=== PATIENT | female | born 1985 | race Caucasian/White ===

== ENCOUNTER 2025-05-26 20:38 | Inpatient (IN) | payer OTHER, SELFPAY ==
--- OUTSIDE RECORDS SUMMARY | 2025-05-23 11:39 | XMS_ITS | Encounter Summary ---
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 mmol/L 05/26/2025 2:47 PM [facility] BUN 11 7 - 24 mg/dL 05/26/2025 2:47 PM [facility] Creatinine, Blood 0.60 0.50 - 1.30 mg/dL 05/26/2025 2:47 PM [facility] Glucose, Blood 91 50 - 100 mg/dL 05/26/2025 2:47 PM [facility] Calcium 9.0 8.5 - 10.5 mg/dL 05/26/2025 2:47 PM [facility] Total Protein 7.4 6.2 - 8.2 g/dL 05/26/2025 2:47 PM [facility] Albumin, Blood 4.1 3.4 - 5.2 g/dL 05/26/2025 2:47 PM [facility] Globulin Result 3.3 2.0 - 4.0 g/dL 05/26/2025 2:47 PM [facility] AST (SGOT) 25 11 - 40 U/L 05/26/2025 2:47 PM [facility] ALT (SGPT) 28 5 - 40 U/L 05/26/2025 2:47 PM [facility] Alkaline Phosphatase 101 30 - 115 U/L 05/26/2025 2:47 PM [facility] Total Bilirubin 0.4 0.2 - 1.2 mg/dL 05/26/2025 2:47 PM EST [facility] Estimated GFR(CKD-EPI) 116 >=60 mL/min/BSA 05/26/2025 2:47 PM EST [facility] Blood PERIPHERAL BLOOD SPECIMEN / Unknown Venipuncture / Unknown 05/26/2025 1:07 PM EST 05/26/2025 1:14 PM EST Kami Soto NP LAB BLOOD ORDERABLES Final Res ult Performing Organization Address [facility] Co de Phone Number [facility] [address] [place] [address] * ECG 12 lead, to be obtained, other indication (05/26/2025 12:50 PM EST) Pathologist [facility] Ventricular Heart Rate 87 BPM EKG [facility] Atrial Heart Rate 87 BPM EKG [facility] WI Interval 138 ms EKG [facility] QRSD Interval 84 ms EKG [facility] QT Interval 354 ms EKG [facility] QTC Interval 425 ms EKG [facility] P [place] 61 degrees EKG [facility] R [place] 32 degrees EKG [facility] T Wave [place] 43 degrees EKG [facility] 05/26/2025 12:4 8 PM EST 05/26/2025 4:12 PM EST Narrative EKG [facility] - 05/26/2025 4:12 PM EST Normal sinus rhythm Late R wave progression in precordial leads Early repolarization Confirmed by Manny Sterling ([id number]) on 05/26/2025 4:12:38 PM Procedure Note Manny Sterling MD - 05/26/2025 Normal sinus rhythm Late R wave progression in precordial leads Early repolarization Confirmed by Manny Sterling ([id number]) on 05/26/2025 4:12:38 PM Kami Soto NP ECG ORDERABLES Final Result Performing Organization Address [facility] Co de Phone Number EKG [facility] [address] [place] [address] * (HCG), Urine (05/23/2025 1:59 PM EDT) Pathologist [facility] HCG, Urine Random Negative Negative 05/23/2025 2:25 PM EDT [facility] Comment:False positives and false negatives results may occur with qualitative tests for HCG due to unexpected antibodies. Clinical correlation is necessary. Urine URINE SPECIMEN / Unknown Collection / Unknown 05/23/2025 1:59 PM EDT 05/23/2025 2:11 PM EDT Della Flowers MD URINE ORDERABLES Final Result [facility] [address] [place] [address] * (ABNORMAL) Drug Screen, Urine (05/23/2025 1:59 PM EDT) 6-Aceytlmorphine Screen, Urine Negative Negative 05/23/2025 2:49 PM EDT [facility] Comment:Add on order [id number] Opiates and Oxycodone, Urine, Confirmation, if confirmation desired. Amphetamines Screen, Urine Negative Negative 05/23/2025 2:49 PM EDT [facility] Comment: Screen for Amphetamine, Metamphetamine or other Amphetamine-like compounds. Add-on order [id number] Amphetamine, Urine, Confirmation if confirmation desired. Barbiturates Screen, Urine Negative Negative 05/23/2025 2:49 PM EDT [facility] Comment:Add-on order [id number] Barbiturate, Urine, Confirmation if confirmation desired. Benzodiazepine Screen, Urine Negative Negative 05/23/2025 2:49 PM EDT [facility] Comment: Add-on order [id number] Benzodiazepine, Urine, Confirmation if confirmation desired. Buprenorphine Screen, Urine Negative Negative 05/23/2025 2:49 PM EDT [facility] Comment:Add-on order [id number] Buprenorphine, Urine, Confirmation if confirmation desired. Cannabinoids Screen, Urine Positive(A) Negative 05/23/2025 2:49 PM EDT [facility] Comment:Add-on order [id number] Cannabinoids, Urine, if confirmation desired. Cocaine Metabolite Screen, Urine Negative Negative 05/23/2025 2:49 PM EDT [facility] Comment:Add-on order [id number] Cocaine, Urine, Confirmation if confirmation desired. Ethanol Screen, Urine Negative Negative 05/23/2025 2:49 PM EDT [facility] Fentanyl Screen, Urine Negative Negative 05/23/2025 2:49 PM EDT [facility] Comment:Add-on order [id number] Fentanyl Confirmation, Urine, if confirmation desired. Methadone Screen, Urine Negative Negative 05/23/2025 2:49 PM EDT [facility] Comment:Add order [id number] Me thadone, Urine, Confirmation if confirmation desired. Opiates Screen, Urine Negative Negative 05/23/2025 2:49 PM EDT [facility] Comment: Screen for Morphine, Codeine, Hyrdocodone, Hydromorphone, or other Morphine- related opiates. Add on order [id number] Opiates and Oxycodone, Urine, Confirmation if confirmation desired. Oxycodone Screen, Urine Negative Negative 05/23/2025 2:49 PM EDT [facility] Comment:Add-on order [id number] Opiates and Oxycodone, Urine, Confirmation if confirmation desired. Tramadol Screen, Urine Negative Negative 05/23/2025 2:49 PM EDT [facility] Comment:Add-on order [id number] Tramadol Confirmation, Urine, if confirmation desired. Creatinine, [facility] Urine 78.0 >=15.0 mg/dL 05/23/2025 2:49 PM EDT [facility] Urine URINE SPECIMEN / Unknown Collection / Unknown 05/23/2025 1:59 PM EDT 05/23/2025 2:11 PM EDT [facility] - 05/23/2025 2:49 PM EDT These tests are for screening purposes only and should only be used for medical purposes. The cutoff concentrations for determining a positive result are as follows: 6-Acetylmorphine 10 ng/mL 6-acetylmorphine Amphetamines 1000 ng/mL d-methamphetamine Barbiturates 200 ng/mL secobarbital Benzodiazepines 200 ng/mL nordiazepam Buprenorphine 5 ng/mL norbuprenorphine Cannabinoids 50 ng/mL COOH-THC Cocaine 300 ng/mL benzoylecgonine Ethanol 20 mg/dL ethanol Fentanyl 5 ng/mL norfentanyl Methadone 300 ng/mL methadone Opiates 300 ng/mL morphine Oxycodone 100 ng/mL oxycodone Tramadol 200 ng/mL tramadol False negative and false positive results may occur due to cross-reactivity, patient medications or sample adulteration. If the validity of these results is uncertain, confirmatory testing can be done upon specific request. us Della Flowers MD URINE ORDERABLES Final Result [facility] [address] [place] [address] documented in this encounter Visit Diagnoses Diagnosis Schizoaffective disorder, unspecified type (CMS-HCC) [F25.9]- Primary Paranoia ([facility]) Delusional disorder documented in this encounter Administered Medications Inactive Administered Medications - up to 3 most recent administrations Medication Order MAR Action Action Date Dose Rate Site ARIPiprazole (ABILIFY) tablet 30 mg 30 mg, Oral, Daily, First dose on 05/23/25 at 1623, Until Discontinued Given 05/26/2025 8:04 AM EST 30 mg Given 05/25/2025 8:02 AM EST 30 mg Given 05/24/2025 8:26 AM EST 30 mg atorvaSTATin (LIPITOR) tablet 20 mg 20 mg, Oral, At bedtime, First dose on Sun05/23/25 at 2100, Until Discontinued Given 05/25/2025 8:12 PM EST 20 mg Given 05/24/2025 9:31 PM EST 20 mg Given 05/23/2025 9:13 PM EDT 20 mg haloperidoL (HALDOL) tablet 2 mg 2 mg, Oral, 3 times daily PRN, Starting on 05/23/25 at 1620, Until Sun05/26/25 at 2022, agitation Given 05/26/2025 2:31 PM EST 2 mg Given 05/26/2025 6:17 AM EST 2 mg Given 05/25/2025 2:43 PM EST 2 mg hydrOXYzine HCL (ATARAX) tablet 50 mg 50 mg, Oral, Every 8 hours PRN, Starting on 05/23/25 at 1620, Until Sun05/26/25 at 2022, anxiety Given 05/26/2025 9:42 AM EST 50 mg Given 05/24/2025 8:47 AM EST 50 mg LORazepam (ATIVAN) tablet 1 mg 1 mg, Oral, Once, 1 dose, On 05/23/25 at 1347 Given 05/23/2025 1:48 PM EDT 1 mg LORazepam (ATIVAN) tablet 1 mg 1 mg, Oral, Once, 1 dose, On 05/25/25 at 0902 Given 05/25/2025 9:04 AM EST 1 mg LORazepam (ATIVAN) tablet 1 mg 1 mg, Oral, Once, 1 dose, On 05/25/25 at 1701 Given 05/25/2025 5:13 PM EST 1 mg metFORMIN ER 24 hr tablet 500 mg 500 mg, Oral, Daily with breakfast, First dose on 05/24/25 at 0800, Until Discontinued Given 05/26/2025 8:04 AM EST 500 mg Given 05/25/2025 8:03 AM EST 500 mg Given 05/24/2025 8:25 AM EST 500 mg multivitamin tablet 1 tablet 1 tablet, Oral, Daily, First dose on 05/24/25 at 0900, Until Discontinued Given 05/26/2025 8:04 AM EST 1 tablet Given 05/25/2025 8:02 AM EST 1 tablet Given 05/24/2025 8:26 AM EST 1 tablet nicotine polacrilex (NICORETTE) gum 4 mg 4 mg, Buccal, Every 2 hour PRN, Starting on 05/24/25 at 1321, Until Tu05/26/25 at 2022, smoking cessation Given 05/26/2025 2:32 PM EST 4 mg Given 05/26/2025 9:42 AM EST 4 mg Given 05/26/2025 6:17 AM EST 4 mg documented in this encounter Active and Recently Administered Medications Due to Daylight Saving Time, this section may contain times in both EDT and EST. Scheduled Medication Order 05/24/2025 05/25/2025 05/26/2025 ARIPiprazole (ABILIFY) tablet 30 mg 30 mg, Oral, Daily, First dose on 05/23/25 at 1623, Until Discontinued 08 (Given - Provider: Isamar Ardon RN) 801 (Given - Provider: Shalonda Breaux RN) 803 (Given - Provider: Shalonda Breaux, FRANCES) atorvaSTATin (LIPITOR) tablet 20 mg 20 mg, Oral, At bedtime, First dose on 05/23/25 at 2100, Until Discontinued 2130 (Given - Provider: Sheri Shoemaker RN) 2011 (Given - Provider: Jacky Darling, FRANCES) LORazepam (ATIVAN) tablet 1 mg (COMPLETED) 1 mg, Oral, Once, 1 dose, On 05/25/25 at 0902 0904 (Given - Provider: Shalonda Breaux RN) LORazepam (ATIVAN) tablet 1 mg (COMPLETED) 1 mg, Oral, Once, 1 dose, On 05/25/25 at 1701 1713 (Given - Provider: Shalonda Breaux RN) metFORMIN ER 24 hr tablet 500 mg 500 mg, Oral, Daily with breakfast, First dose on 05/24/25 at 0800, Until Discontinued 08 (Given - Provider: Isamar Ardon RN) 08 (Given - Provider: Shalonda Breaux RN) 08 (Given - Provider: Shalonda Breaux RN) multivitamin tablet 1 tablet 1 tablet, Oral, Daily, First dose on 05/24/25 at 0900, Until Discontinued 08 (Given - Provider: Isamar Ardon RN) 08 (Given - Provider: Shalonda Breaux RN) 0804 (Given - Provider: Shalonda Breaux RN) PRN Medication Order 05/24/2025 05/25/2025 05/26/2025 haloperidoL (HALDOL) tablet 2 mg 2 mg, Oral, 3 times daily PRN, Starting on 05/23/25 at 1620, Until Sun05/26/25 at 2022, agitation 1319 (Given - Provider: Isamar Ardon RN) 0844 (Given - Provider: Shalonda Breaux RN)1443 (Given - Provider: Shalonda Breaux RN) 0617 (Given - Provider: Jacky Darling, FRANCES)1431 (Given - Provider: Na Tanner, FRANCES) hydrOXYzine HCL (ATARAX) tablet 50 mg 50 mg, Oral, Every 8 hours PRN, Starting on 05/23/25 at 1620, Until Sun05/26/25 at 2022, anxiety 0847 (Given - Provider: Isamar Ardon RN) 0942 (Given - Provider: Na Tanner, FRANCES) nicotine polacrilex (NICORETTE) gum 4 mg 4 mg, Buccal, Every 2 hour PRN, Starting on 05/24/25 at 1321, Until Tu05/26/25 at 2023, smoking cessation 1322 (Given - Provider: Isamar Ardon, RN)1630 (Given - Provider: Isamar Ardon, RN) 1021 (Given - Provider: Shalonda Breaux, RN)1443 (Given - Provider: Shalonda Breaux, RN)1955 (Given - Provider: Jacky Darling, RN) 0617 (Given - Provider: Jacky Darling RN)0942 (Given - Provider: Na Tanner RN)1432 (Given - Provider: Na Tanner RN) documented in this encounter Care Teams Dev Technical Mgr Relationship Specialty Start Date End Date [facility] [address] [place] [id number] PCP - Insurance Assigned PCP 05/13/25 None, PcpMD PCP - General 05/23/25 documented as of this encounter
--- OUTSIDE RECORDS SUMMARY | 2025-05-26 20:44 | XMS_ITS | Clinical Summary ---
Author Organization Erin styles Address [address] [place] [address] Care Team Providers Care Bag Sealer Name Role Phone [facility] Unavailab le None, Pcp Primary Care Provider Unavailabl e Allergies Active Allergy Reactions Criticality Noted Date Comments Acetaminophen Other (See Comments) 04/17/2011 Percocet- severe Diphenhydramine Hcl Other (See Comments) 2010 Benadryl- Severe Oxycodone Hcl Other (See Comments) 04/17/2011 Percocet- Severe Medications * This document contains information received from the source organization and may not represent a complete record from that organization. MULTIVITAMIN ORAL 5 Active THERA-M 9 mg iron-400 mcg tablet 5 Active metFORMIN ER 500 MG 24 hr tablet TAKE 1 TABLET (500MG) BY MOUTH EVERY DAY 5 Active diphenhydrAMINE (BENADRYL ALLERGY) 50 MG tablet take 1 tablet as needed every six hours, not to exceed four doses in 24 hours 4 Active cholecalciferol , vitamin D3, 25 mcg (1,000 unit) capsule Take 1 capsule (1,000 Units total) by mouth daily. 5 Active atorvaSTATin (LIPITOR) 20 MG tablet TAKE 1 TABLET (20MG) BY MOUTH AT BEDTIME Active acetaminophen (TYLENOL) 325 MG tablet TAKE 2 TABLETS (650MG) BY MOUTH EVERY 6 HOURS prn headache Active ARIPiprazole (ABILIFY) 30 MG tablet Take 1 tablet (30 mg total) by mouth in the morning. 30 tablet 1 5 Active lumateperone (CAPLYTA) 21 mg cap Take 21 mg by mouth before bedtime. 30 capsule 5 Active haloperidoL (HALDOL) 2 MG tablet Take 1 tablet (2 mg total) by mouth 3 times a day as needed. 5 Active hydrOXYzine HCL (ATARAX) 50 MG tablet Take 1 tablet (50 mg total) by mouth every 8 hours as needed for anxiety. Active ARIPiprazole (ABILIFY) 30 MG tablet TAKE ONE (1) TABLET BY MOUTH DAILY 30 tablet 1 5 05/20/20 25 Discontinu ed(Reorder ) Active Problems Problem Noted Date Diagnosed Date Cannabis dependence, abuse 08/27/2024 Prediabetes 04/01/2024 Hyperlipidemia 04/01/2024 Schizoaffective disorder 04/01/2024 Subclinical hyperthyroidism 04/01/2024 Thyroid nodule 04/01/2024 Attention-deficit hyperactivity disorder, unspec ified type 05/26/2013 Psychosis, unspecified psychosis type 05/26/2013 H/O ETOH abuse 11/27/2012 Anxiety, generalized 02/28/2008 Major depression, recurrent 02/28/2008 Encounters * This document contains information received from the source organization and may not represent a complete record from that organization. Date Type Department Care Team Description 05/23/2025 12:39 PM EDT - 05/26/2025 6:22 PM EST Emergency [facility] [address] [place] [address] Della Flowers MD [place], MD Lake Becker, MD Giles Morgan, MD Jeremy Schroeder, MD Gus Meek, MD Jesus Fletcher, MD Gypsy Hernandez, MD Torin Hayes, MD Lawson Joseph, MD Cale Schizoaffective disorder, unspecified type ([facility]) [F25.9] (Primary Dx); Paranoia ([facility]) Discharge Disposition: [facility] 05/23/2025 Travel 05/19/2025 Abstract [facility] Information Management [address] [place] [address] Provider, MD [place] from Last 3 Months Immunizations Immunization Administration Dates Next Due DTP 11/15/1984,03/28/1984,02/19/1984 Influenza Vaccine - STANDARD - PF (FLUZONE/FLUARIX/FLULAVAL/AFLURIA) 04/01/2024 MMR Live vaccine 11/25/1984 OPV 11/15/1984,03/28/1984,02/19/1984 Tdap Vaccine (BOOSTRIX/ADACEL) 10/15/2014 Social History Tobacco Use Types Packs/Day Years Used Date Smoking Tobacco: Every Day Cigarettes Smokeless Tobacco: Current Tobacco Cessation:Ready to Q uit: No; Counseling Given: Yes Alcohol Use Standard Drinks/Week Comments Yes 12 [...] any time in the past 12 m [facility], were you homeless or living in a nursing home (including now)? No 05/23/2025 [facility] Utilities Answer Date Recorded In the past [...] PM EDT Sexual Orientation Not on file Last Filed Vital Signs Vital Sign Reading [...] Mass Index 35.43 05/23/2025 12:56 PM EDT Plan of Treatment Health Maintenance Due Date Last Done Comments Depression Screening 1987 Hepatitis C Screening 2001 Pneumococcal Vaccine (1 of 2 - PCV) 2002 Pap Smear 2004 Cervical Cancer Screening 2013 HPV/Cotest 2013 Breast Cancer Screening 2023 DTaP,Tdap,and Td Vaccines (5 - Td or Tdap) 10/15/2024 10/15/2014, 11/15/1984, 03/28/1984, Additional history exists COVID-19 Vaccine ( - season) 2025 Influenza Vaccine (#1) 2025 04/01/2024 Lipid Panel 11/02/2025 11/02/2024, 09/19/2023 Blood Pressure 05/26/2026 05/26/2025 Hemoglobin A1c 11/03/2027 11/02/2024, 09/19/2023 Meningococcal B Vaccines Aged Out No longer eligible based on patient's age to complete this topic Meningococcal Vaccines Aged Out No lo nger eligible based on patient's age to complete this topic Procedures Procedure Name Priority Date/Time Associated Diagnosis Comments CBC AND DIFFERENTIAL STAT 05/26/2025 1:07 PM EST CBC AND DIFFERENTIAL STAT 05/26/2025 1:07 PM EST COMPREHENSIVE METABOLIC PANEL STAT 05/26/2025 1:07 PM EST ECG 12-LEAD STAT 05/26/2025 12:50 PM EST , URINE STAT 05/23/2025 1:59 PM EDT DRUG SCREEN, URINE STAT 05/23/2025 1: 59 PM EDT HEMOGLOBIN A1C Routine 11/02/2024 10:00 AM EDT Polypharmacy LIPID PANEL Routine 11/02/2024 10:00 AM EDT Polypharmacy from Last 3 Months or Most Recently Relevant to Health Maintenance Results * (ABNORMAL) CBC and Differential (05/26/2025 1:07 PM EST) [facility] WBC 9.50 4.00 - 11.00 K/uL 05/26/2025 1:19 PM [facility] RBC 4.47 4.00 - 5.60 M/uL 05/26/2025 1:19 PM [facility] Hemoglobin 14.0 12.0 - 16.7 g/dL 05/26/2025 1:19 PM [facility] Hematocrit 41.8 36.0 - 50.1 % 05/26/2025 1:19 PM [facility] MCH 31.3 23.0 - 37.0 pg 05/26/2025 1:19 PM [facility] MCHC 33.5 29.0 - 38.0 g/dL 05/26/2025 1:19 PM [facility] MCV 94 82 - 98 fL 05/26/2025 1:19 PM [facility] RDW 12.9 11.5 - 14.5 % 05/26/2025 1:19 PM [facility] Platelet Count 232 150 - 450 K/uL 05/26/2025 1:19 PM [facility] MPV 10.0 6.0 - 14.0 fL 05/26/2025 1:19 PM [facility] Neutrophil 62.4 % 05/26/2025 1:19 PM [facility] Lymphocyte 26.7 % 05/26/2025 1:19 PM [facility] Monocyte 9.3 % 05/26/2025 1:19 PM [facility] Eosinophil 0.8 % 05/26/2025 1:19 PM [facility] Basophil 0.5 % 05/26/2025 1:19 PM [facility] Immature Granulocyte ([place], Myelo, Promyelocyte) 0.3 % 05/26/2025 1:19 PM [facility] Absolute Neutrophil Count 5.92 1.50 - 7.70 K/uL 05/26/2025 1:19 PM [facility] Absolute Immature Granulocyte ([place], Myelo, Promyelocyte) 0.03 0.00 - 0.09 K/uL 05/26/2025 1:19 PM [facility] Absolute Lymphocyte Count 2.54 1.50 - 4.00 K/uL 05/26/2025 1:19 PM [facility] Absolute Monocyte Count 0.88 0.16 - 1.26 K/uL 05/26/2025 1:19 PM [facility] Absolute Eosinophil Count 0.08(L) 0.15 - 0.30 K/uL 05/26/2025 1:19 PM [facility] Absolute Basophil Count 0.05 0.00 - 0.21 K/uL 05/26/2025 1:19 PM [facility] Blood PERIPHERAL BLOOD SPECIMEN / Unknown Venipuncture / Unknown 05/26/2025 1:07 PM EST 05/26/2025 1:13 PM EST us Kami Soto [employer] LAB BLOOD ORDERABLES Final Res ult [facility] [address] [place] [address] * (ABNORMAL) Comprehensive Metabolic Panel (05/26/2025 1:07 PM EST) Sodium 137 135 - 146 mmol/L 05/26/2025 2:47 PM [facility] Potassium 4.3 3.4 - 5.2 mmol/L 05/26/2025 2:47 PM [facility] Chloride 106 98 - 110 mmol/L 05/26/2025 2:47 PM [facility] Total CO2/Bicarbonate 19(L) 24 - 32 mmol/L 05/26/2025 2:47 PM [facility] Anion Gap 12 2 - 15 mmol/L 05/26/2025 2:47 PM [facility] BUN 11 7 - 24 mg/dL 05/26/2025 2:47 PM [facility] Creatinine, Blood 0.60 0.50 - 1.30 mg/dL 05/26/2025 2:47 PM [facility] Glucose, Blood 91 50 - 100 mg/dL 05/26/2025 2:47 PM [facility] Calcium 9.0 8.5 - 10.5 mg/dL 05/26/2025 2:47 PM [facility] Total Protein 7.4 6.2 - 8.2 g/dL 05/26/2025 2:47 PM [facility] Albumin, Blood 4.1 3.4 - 5.2 g/dL 05/26/2025 2:47 PM EST [facility] Globulin Result 3.3 2.0 - 4.0 g/dL 05/26/2025 2:47 PM EST [facility] AST (SGOT) 25 11 - 40 U/L 05/26/2025 2:47 PM EST [facility] ALT (SGPT) 28 5 - 40 U/L 05/26/2025 2:47 PM EST [facility] Alkaline Phosphatase 101 30 - 115 U/L 05/26/2025 2:47 PM EST [facility] Total Bilirubin 0.4 0.2 - 1.2 mg/dL 05/26/2025 2:47 PM EST [facility] Estimated GFR(CKD-EPI) 116 >=60 mL/min/BSA 05/26/2025 2:47 PM EST [facility] Blood PERIPHERAL BLOOD SPECIMEN / Unknown Venipuncture / Unknown 05/26/2025 1:07 PM EST 05/26/2025 1:14 PM EST Kami Soto [employer] LAB BLOOD ORDERABLES Final Res ult [facility] [address] [place] [address] * ECG 12 lead, to be obtained, other indication (05/26/2025 12:50 PM EST) Ventricular Heart Rate 87 BPM EKG [facility] Atrial Heart Rate 87 BPM EKG [facility] MN Interval 138 ms EKG [facility] QRSD Interval 84 ms EKG [facility] QT Interval 354 ms EKG [facility] QTC Interval 425 ms EKG [facility] P Gobles 61 degrees EKG [facility] R Gobles 32 degrees EKG [facility] T Wave Gobles 43 degrees EKG [facility] 05/26/2025 12:4 [...] Kami Soto NP ECG ORDERABLES Final Result EKG [facility]IG[facility] [address] [address] * (ABNORMAL) Drug Screen, Urine (05/23/2025 1:59 PM EDT) 6-Aceytlmorphine Screen, Urine Negative Negative 05/23/2025 2:49 PM EDT [facility] Comment:Add on order [id number] Opiates and Oxycodone, Urine, Confirmation, if confirmation desired. Amphetamines Screen, Urine Negative Negative 05/23/2025 2:49 PM EDT [facility] Comment: Screen for Amphetamine, Metamphetamine or other Amphetamine-like compounds. Add-on order [id number] Amphetamine, Urine, Confirmation if confirmation desired. Barbiturates Screen, Urine Negative Negative 05/23/2025 2:49 PM EDT [facility] Comment:Add-on order [id number] Barbiturate, Urine, Confirmation if confirmation desired. Benzodiazepine Screen, Urine Negative Negative 05/23/2025 2:49 PM EDT [facility] Comment: Add-on order [id number] Benzodiazepine, Urine, Confirmation if confirmation desired. Buprenorphine Screen, Urine Negative Negative 05/23/2025 2:49 PM EDT [facility] Comment:Add-on order [id number] Buprenorphine, Urine, Confirmation if confirmation desired. Cannabinoids Screen, Urine Positive(A) Negative 05/23/2025 2:49 PM EDT [facility] Comment:Add-on order [id number] Cannabinoids, Urine, if confirmation desired. Cocaine Metabolite Screen, Urine Negative Negative 05/23/2025 2:49 PM EDT [facility] Comment:Add-on order [id number] Cocaine, Urine, Confirmation if confirmation desired. Ethanol Screen, Urine Negative Negative 05/23/2025 2:49 PM EDT [facility] Fentanyl Screen, Urine Negative Negative 05/23/2025 2:49 PM EDT [facility] Comment:Add-on order [id number] Fentanyl Confirmation, Urine, if confirmation desired. Methadone Screen, Urine Negative Negative 05/23/2025 2:49 PM EDT [facility] Comment:Add order [id number] Me thadone, Urine, Confirmation if confirmation desired. Opiates Screen, Urine Negative Negative 05/23/2025 2:49 PM EDT [facility] Comment: Screen for Morphine, Codeine, Hyrdocodone, Hydromorphone, or other Morphine- related opiates. Add on order [id number] Opiates and Oxycodone, Urine, Confirmation if confirmation desired. Oxycodone Screen, Urine Negative Negative 05/23/2025 2:49 PM EDT [facility] Comment:Add-on order [id number] Opiates and Oxycodone, Urine, Confirmation if confirmation desired. Tramadol Screen, Urine Negative Negative 05/23/2025 2:49 PM EDT [facility] Comment:Add-on order [id number] Tramadol Confirmation, Urine, if confirmation desired. Creatinine, Capo Urine 78.0 >=15.0 mg/dL 05/23/2025 2:49 PM EDT [facility] Urine URINE SPECIMEN / Unknown Collection / Unknown 05/23/2025 1:59 PM EDT 05/23/2025 2:11 PM EDT [facility] - 05/23/2025 2:49 PM EDT These [...] testing can be done upon specific request. Della Flowers MD URINE ORDERABLES Final Result Performing Organization Address [facility] de Phone Number [facility] [address] [place] [address] * (HCG), Urine (05/23/2025 1:59 PM EDT) HCG, Urine Random Negative Negative 05/23/2025 2:25 PM EDT [facility] Comment:False positives and false negatives results may occur with qualitative tests for HCG due to unexpected antibodies. Clinical correlation is necessary. Urine URINE SPECIMEN / Unknown Collection / Unknown 05/23/2025 1:59 PM EDT 05/23/2025 2:11 PM EDT Della Flowers MD URINE ORDERABLES Final Result Performing Organization Address [facility] de Phone Number [address] [address] * (ABNORMAL) Hemoglobin A1C (11/02/2024 10:00 AM EDT) Pathologist [facility] Hemoglobin A1C 5.9(H) 4.6 - 5.6 % 11/02/2024 11:20 AM EDT [facility] Estimated Average Glucose 122 mg/dL 11/02/2024 11:20 AM EDT [facility] Blood PERIPHERAL BLOOD SPECIMEN / Unknown Venipuncture / Unknown 11/02/2024 10:00 AM EDT 11/02/2024 10:31 AM EDT Shar Ferrari MD LAB BLOOD ORDERABLES Final Resul t Performing Organization Address [facility] Co de Phone Number [facility] [address] [place] [address] * (ABNORMAL) Lipid Panel (11/02/2024 10:00 AM EDT) Cholesterol 121(L) 125 - 200 mg/dL 11/02/2024 11:26 AM EDT [facility] Triglycerides 67 55 - 150 mg/dL 11/02/2024 11:26 AM EDT [facility] HDL Cholesterol 41 40 - 65 mg/dL 11/02/2024 11:26 AM EDT [facility] LDL Cholesterol 67 <130 mg/dL 11/02/2024 11:26 AM EDT [facility] Non-HDL Cholesterol 80 <190 mg/dL 11/02/2024 11:26 AM EDT [facility] Comment: Normal primary prevention <190 mg/dL High risk primary prevention <160 mg/dL Secondary prevention <130 mg/dL High risk secondary prevention <100 mg/dL VLDL Cholesterol 13 8 - 71 mg/dL 11/02/2024 11:26 AM EDT [facility] Ratio Chol/HDL 3.0 2.0 - 5.0 11/02/2024 11:26 AM EDT [facility] Patient Fasting Yes 11:26 AM EDT [facility] Blood PERIPHERAL BLOOD SPECIMEN / Unknown Venipuncture / Unknown 11/02/2024 10:00 AM EDT 11/02/2024 10:32 AM EDT Shar Ferrari MD LAB BLOOD ORDERABLES Final Resul t [facility] [address] [place] [address] from Last 3 Months or Most Recently Relevant to Health Maintenance [facility] [place] [address] Care Teams Bag Sealer Relationship Specialty Start Date End Date [facility] [address] [place] [id number] PCP - Insurance Assigned PCP 05/13/25 None, PcpMD PCP - General 05/23/25
--- OUTSIDE RECORDS SUMMARY | 2025-05-26 20:44 | XMS_ITS | Data Portability ---
Author Organization [facility], jv Mendez [facility] Address [address] [place] [address] Assessment Encounter Date Assessment Date Assessment LastModified by Organization Details LastModified Time 04/01/2024 04/01/2024 Discussed physical and preventative care vs. other symptoms, new diagnoses, new or adjusted treatments, referrals. Billing criteria reviewed with patient. They are aware they may be charged for an office visit within a physical based on insurance and billing requirements. Patient verbalized understanding. [email or web address] Not available 04/01/2024 13:30:27 Plan of Treatment Reminders Order Date Submit Date Provider Last Modified By Organization Details Last Modified Time Details Appointments None recorded. Lab hemoglobin A1C/hemoglo bin total, QN, blood 2023 [facility], [address] [place] [address], [address], 4 14:35:54 CBC w/ auto diff 2023 [facility], [address] [place] [address], [address], 4 14:20:08 hepatic function panel, serum 2023 [facility], [address] [place] [address], [address], 4 15:07:20 lipid panel, serum 2023 024 [facility], [address] [place] [address], [address], 4 15:07:19 thyrotropin , QN, serum or plasma 2023 024 [facility], [address] [place] [address], [address], 4 15:07:21 BMP, serum or plasma 2023 024 [facility], [address] [place] [address], [address], 4 15:07:18 thyroxine, free, QN, serum or plasma 2023 024 [facility], [address] [place] [address], [address], 4 15:07:21 TSH + free T4, serum 2022 023 cudom [facility], [address], [address], 3 15:18:[address] referral - Mole chesk. 2023 024 [email or web address] 0 [facility], [address] [place] [address], [address], 4 11:45:56 gynecologis t referral - never had pap before 2023 024 [email or web address] [email or web address] Curtis Mauro MD, [address] [place] [address], [address], 4 12:48:28 endocrinolo gy referral 2022 023 [email or web address] Not available 4 14:30:18 Procedures None recorded. Surgeries None recorded. Imaging US, echocardiog gillian - EKG with some abnormaliti es, EKG prior in hospital similar, echo to r/o valve abnormaliti es 2023 024 [email or web address] [email or web address] In-Office Order, Internal Use Only DO Not Attach Compendium DO Not Attach Compendium, Do Not Delete/merge, [id number] 4 09:06:48 US, thyroid - recent US 06/2023 with thyroid nodules, recommended repeat US 1 year. 2023 024 [email or web address] 1 In-Office Order, Internal Use Only DO Not Attach Compendium DO Not Attach Compendium, Do Not Delete/merge, [id number] 4 13:46:31 MAMMO, screening, tomosynthes is, bilateral - Screening mammogram. 2023 024 [email or web address] 2 Breast [facility] [address] [place] [address], [place], [address], 4 12:41:01 electrocard iogram 2023 024 [email or web address] 2 In-Office Order, Internal Use Only DO Not Attach Compendium DO Not Attach Compendium, Do Not Delete/merge, [id number] 4 12:41:00 US, thyroid 2022 023 [email or web address] Not available 3 15:18:12 Medication Orders acetaminoph en 325 mg tablet [address], [address], 5 13:17:15 Vitamin D3 25 mcg (1,000 unit) capsule [address], [address], 5 13:17:25 metformin ER 500 mg tablet,exte nded release 24 hr [address], [address], 5 13:16:40 Benadryl Allergy 50 mg tablet [address], [address], 5 13:17:22 atorvastati n 20 mg tablet 2024 025 PARKER Ortega, [address] [place] [address], [address], 5 13:16:36 amoxicillin 875 mg-potassiu m clavulanate 125 mg tablet 2023 024 [email or web address] 2 Not available 5 13:13:19 fluticasone propionate 50 mcg/actuati on nasal spray,suspe nsion 2023 024 [email or web address] 2 Not available 5 13:14:22 Tylenol 325 mg tablet 2022 023 cudom Not available 3 15:18:13 metformin ER 500 mg tablet,exte nded release 24 hr 2022 023 cudom Not available 3 15:18:12 Lipitor 20 mg tablet 2022 023 cudom Not available 3 15:18:12 diphenhydra mine 50 mg capsule 2022 023 [email or web address] 2 Not available 5 13:13:43 cholecalcif em (vitamin D3) 1,250 mcg (50,000 unit) capsule 2022 023 [email or web address] Not available 4 12:46:01 Patient TargetsNo targets recorded. 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 Referral for Sc reening for malignant neoplasm of cervix never had pap before Referring Physician: [facility], Encounter Date: 04/01/2024 Results Created Date Observation Date Name Description Value Unit Range Abnormal Flag Note LastModifiedBy Organization Detail LastModifiedTime 10/03/19 24 10/04/2023 VITD_ 25-OH vitd_25-oh 43 NG/mL >30 Not Available [facility] [address] [place], [address], 10/04/2023 12:35:08 04/01/20 24 04/01/2024 CBC W/AUT O DIFF WBC 8.77 K/uL 3.98-1 0.04 Not Available [facility] [address] [place] [address], [address], 04/01/2024 14:20:08 04/01/20 24 04/01/2024 CBC W/AUT O DIFF neut% 60.8 % 34.0-7 1.1 Not Available [facility] [address] [place], [address], 04/01/2024 14:20:08 04/01/20 24 04/01/2024 CBC W/AUT O DIFF lymph% 28.6 % 19.3-5 1.7 Not Available [facility] [address] [place] [address], [address], 04/01/2024 14:20:08 04/01/20 24 04/01/2024 CBC W/AUT O DIFF mono% 9.2 % 4.7-12 .5 Not Available [facility] [address] [place], [address], 04/01/2024 14:20:08 04/01/20 24 04/01/2024 CBC W/AUT O DIFF eo% 0.7 % 0.7-5. 8 Not Available [facility] [address] [place], [address], 04/01/2024 14:20:08 04/01/20 24 04/01/2024 CBC W/AUT O DIFF baso% 0.6 % 0.1-1. 2 Not Available [facility] [address] [place], [address], 04/01/2024 14:20:08 04/01/20 24 04/01/2024 CBC W/AUT O DIFF Ig% 0.1 % 0.0-0. 9 Not Available [facility] [address] [place], [address], 04/01/2024 14:20:08 04/01/20 24 04/01/2024 CBC W/AUT O DIFF neut# 5.33 K/uL 1.56-6 .13 Not Available [facility] [address] [place], [address], 04/01/2024 14:20:08 04/01/20 24 04/01/2024 CBC W/AUT O DIFF lymph# 2.51 K/uL 1.18-3 .74 Not Available [facility] [address] [place], [address], 04/01/2024 14:20:08 04/01/20 24 04/01/2024 CBC W/AUT O DIFF mono# 0.81 K/uL 0.24-0 .86 Not Available [facility] [address] [place], [address], 04/01/2024 14:20:08 04/01/20 24 04/01/2024 CBC W/AUT O DIFF eo# 0.06 K/uL 0.04-0 .36 Not Available [facility] [address] [place], [address], 04/01/2024 14:20:08 04/01/20 24 04/01/2024 CBC W/AUT O DIFF baso# 0.05 K/uL 0.01-0 .08 Not Available [facility] [address] [place], [address], 04/01/2024 14:20:08 04/01/20 24 04/01/2024 CBC W/AUT O DIFF Ig# 0.01 K\uL 0.00-0 .08 Not Available [facility] [address] [place], [address], 04/01/2024 14:20:08 04/01/20 24 04/01/2024 CBC W/AUT O DIFF RBC 4.69 M/uL 3.93-5 .22 Not Available [facility] [address] [place], [address], 04/01/2024 14:20:08 04/01/20 24 04/01/2024 CBC W/AUT O DIFF HGB 13.9 g/dL 11.2-1 5.7 Not Available [facility] [address] [place], [address], 04/01/2024 14:20:08 04/01/20 24 04/01/2024 CBC W/AUT O DIFF HCT 43.4 % 34.1-4 4.9 Not Available [facility] [address] [place], [address], 04/01/2024 14:20:08 04/01/20 24 04/01/2024 CBC W/AUT O DIFF MCV 92.5 fL 80.0-1 00.0 Not Available [facility] [address] [place], [address], 04/01/2024 14:20:08 04/01/20 24 04/01/2024 CBC W/AUT O DIFF MCH 29.6 pg 25.6-3 2.2 Not Available [facility] [address] [place], [address], 04/01/2024 14:20:08 04/01/20 24 04/01/2024 CBC W/AUT O DIFF MCHC 32.0 g/dL 32.2-3 5.5 low Not Available [facility] [address] [place], [address], 04/01/2024 14:20:08 04/01/20 24 04/01/2024 CBC W/AUT O DIFF RDW-CV 14.0 % 11.7-1 4.4 Not Available [facility] [address] [place], [address], 04/01/2024 14:20:08 04/01/20 24 04/01/2024 CBC W/AUT O DIFF RDW-SD 49.0 fL 36.4-4 6.3 high Not Available [facility] [address] [place], [address], 04/01/2024 14:20:08 04/01/20 24 04/01/2024 CBC W/AUT O DIFF plt 290 K/uL 150-40 0 Not Available [facility] [address] [place], [address], 04/01/2024 14:20:08 04/01/20 24 04/01/2024 HBA1C %A1C 5.3 % <5.7 5.7-6 .4%- Incre ased Risk of devel oping diabe margarito Ameri can Diabe margarito Assoc iatio n Glyce yassine Goals : HgbA1 c Value Glyce yassine Goal <8% Less Strin gent <7% Gener al <6.5% More Strin gent Not Available [facility] [address] [place], [address], 04/01/2024 14:35:53 04/01/20 24 04/01/2024 HBA1C EAG 105 mg/dL 0-126 Not Available [facility] [address] [place], [address], 04/01/2024 14:35:53 04/01/20 24 04/01/2024 BASIC METOB OLIC PANEL BUN 9.0 mg/dL 7.0-20 .1 Not Available [facility] [address] [place], [address], 04/01/2024 15:07:18 04/01/20 24 04/01/2024 BASIC METOB OLIC PANEL calcium 9.7 mg/dL 8.4-10 .5 Not Available [facility] [address] [place], [address], 04/01/2024 15:07:18 04/01/20 24 04/01/2024 BASIC METOB OLIC PANEL chloride 108 mmol/ L 98-108 Not Available [facility] [address] [place], [address], 04/01/2024 15:07:18 04/01/20 24 04/01/2024 BASIC METOB OLIC PANEL CO2 25 mEq/L 22-31 Not Available [facility] [address] [place], [address], 04/01/2024 15:07:18 04/01/20 24 04/01/2024 BASIC METOB OLIC PANEL creatinine 0.73 mg/dL 0.57-1 .11 Not Available [facility] [address] [place], [address], 04/01/2024 15:07:18 04/01/20 24 04/01/2024 BASIC METOB OLIC PANEL glucose 81 mg/dL 70-110 Not Available [facility] [address] [place], [address], 04/01/2024 15:07:18 04/01/20 24 04/01/2024 BASIC METOB OLIC PANEL sodium 140 mmol/ L 136-14 5 Not Available [facility] [address] [place], [address], 04/01/2024 15:07:18 04/01/20 24 04/01/2024 BASIC METOB OLIC PANEL potassium 4.7 mmol/ L 3.5-5. 1 Not Available [facility] [address] [place], [address], 04/01/2024 15:07:18 04/01/20 24 04/01/2024 BASIC METOB OLIC PANEL GFR( non ) 88.3 mL/mi n/1.7 3m >60.0 Not Available [facility] [address] [place], [address], 04/01/2024 15:07:18 04/01/20 24 04/01/2024 BASIC METOB OLIC PANEL GFR() 107.0 mL/mi n/1.7 3m >60.0 Not Available [facility] [address] [place], [address], 04/01/2024 15:07:18 04/01/20 24 04/01/2024 LIPID cholesterol 114 mg/dL 0-200 Ham able <200 Borde rline 200-2 39 High >240 Not Available [facility] [address] [place], [address], 04/01/2024 15:07:19 04/01/20 24 04/01/2024 LIPID ultra HDL 33.0 mg/dL 40.0-6 0.0 low Not Available [facility] [address] [place] [address], [address], 04/01/2024 15:07:19 04/01/20 24 04/01/2024 LIPID calc LDL 69.8 mg/dL 0.0-10 0.0 Not Available [facility] [address] [place], [address], 04/01/2024 15:07:19 04/01/20 24 04/01/2024 LIPID triglyceride s 56.0 mg/dL 0.0-14 9.0 Maria Dolores l: <150 Borde rline High: 150-1 99 High: 200-4 99 Very High: >/=50 0 Not Available [facility] [address] [place], [address], 04/01/2024 15:07:19 04/01/20 24 04/01/2024 HEPAT IC FUNCT ION albumin 4.5 g/dL 3.2-5. 2 Not Available [facility] [address] [place], [address], 04/01/2024 15:07:20 04/01/20 24 04/01/2024 HEPAT IC FUNCT ION alkaline phosphatase 121 U/L 40-150 Not Available [facility] [address] [place], [address], 04/01/2024 15:07:20 04/01/20 24 04/01/2024 HEPAT IC FUNCT ION ALT 22 U/L 0-55 Not Available [facility] [address] [place], [address], 04/01/2024 15:07:20 04/01/20 24 04/01/2024 HEPAT IC FUNCT ION AST 18 U/L 5-34 Not Available [facility] [address] [place], [address], 04/01/2024 15:07:20 04/01/20 24 04/01/2024 HEPAT IC FUNCT ION total bilirubin 0.9 mg/dL 0.2-1. 2 Not Available [facility] [address] [place], [address], 04/01/2024 15:07:20 04/01/20 24 04/01/2024 HEPAT IC FUNCT ION direct bilirubin 0.32 mg/dL 0.00-0 .50 Not Available [facility] [address] [place], [address], 04/01/2024 15:07:20 04/01/20 24 04/01/2024 HEPAT IC FUNCT ION total protein 7.5 g/dL 6.0-8. 3 Not Available [facility] [address] [place] [address], [address], 04/01/2024 15:07:20 04/01/20 24 04/01/2024 FREE T4 free T4 0.95 NG/dL 0.70-1 .48 Not Available [facility] [address] [facility], [place], [address], 04/01/2024 15:07:21 04/01/20 24 04/01/2024 TSH TSH 0.959 uIU/m L 0.350- 4.940 Not Available [facility] [address] [place] [address], [address], 04/01/2024 15:07:21 07/18/20 23 07/18/2023 US, thyro id No observ ation record ed. [facility] [address], [place], [address], 08/07/2023 11:48:58 04/01/20 24 [facility] rocar diogr am No observ ation record ed. [email or web address] In-Office Order Internal Use Only DO Not Attach Compendium DO Not Attach Compendium, Do Not Delete/merge, [id number] 04/01/2024 11:28:42 04/01/20 24 [facility] rocar diogr am No observ ation record ed. [email or web address] Not Available 2023 15:05:37 Result Notes None recorded. Problems Name Problem SNOMED Code Status Onset Date Resolution Date Notes Provider Name and Address Organization Details Recorded Time Schizoaffectiv e disorder 10105543 Active 2023 EDITH VALENTIN NP [address] [facility],ATTN: REJI MOSS [[email or web address]], [place], [address], [facility] 4 13:30:45 Subclinical hyperthyroidis m 762092591 Active 2023 EDITH VALENTIN NP [address],ATTN: REJI MOSS [[email or web address]], [place], [address], [facility] 4 13:30:47 Prediabetes 283938230 Active 2023 EDITH VALENTIN NP [address],ATTN: REJI MOSS [[email or web address]], [place], [address], [facility] 4 13:30:49 Hyperlipidemia 48233254 Active 2023 EDITH VALENTIN NP [address],ATTN: REJI MOSS [[email or web address]], [place], [address], [facility] 4 13:30:50 Thyroid nodule 177488851 Active 2023 EDITH VALENTIN NP [address],ATTN: REJI MOSS [[email or web address]], [place], [address], [facility] 4 13:30:51 Problem Notes None recorded. Procedures Surgical History Date Name Laterality Status Provider Name and Address Organization Details Recorded Time Cerumen Removal completed EDITH VALENTIN NP [address],ATTN: REJI MOSS [[email or web address]], [place], [address], [facility] 04/01/2024 13:30:17 Imaging Results None recorded. Procedure Notes None recorded. Medical Equipment None Reported. Allergies No known drug allergies Medications Name Sig Start Date Stop Date Status Note LastModified by Organization Details LastModified Time multivita min tablet TAKE ONE TABLET BY MOUTH EVERY MORNING 2024 active Not Available Not Available Not Avai lable acetamino phen 325 mg tablet TAKE TWO TABLETS BY MOUTH EVERY 6 HOURS as needed for headache 2024 active Not Available Not Available Not Avai lable atorvasta tin 20 mg tablet TAKE ONE TABLET BY MOUTH EVERY NIGHT 2024 active Last home visit 01/14/25L ast PE 04/01/24 No upcoming appt Normal lfts/ Abnormal lipid 04/01/24 Not Available Not Available Not Available haloperid ol 5 mg tablet active Not Available Not Available Not Available atorvasta tin 10 mg tablet active Not Available Not Available Not Available nicotine (polacril ex) 2 mg gum Chew 1 gum (2mg) every 4 hours as needed smoking cessatio n not to exceed 6 doses in 24 hours 01/14 completed Last OV 04/08/24L ast PE 04/01/24 Next PE/OV 04/02/25 Not Available Not Available Not Available olanzapin e 5 mg tablet active Not Available Not Available Not Available hydroxyzi ne pamoate 50 mg capsule active Not Available Not Available Not Available propranol ol 10 mg tablet 01/22 completed Not Available Not Available Not Available amoxicill in 875 mg tablet 01/14 completed Not Available Not Available Not Available fluoxetin e 10 mg capsule 01/22 completed Not Available Not Available Not Available fluticaso ne propionat e 50 mcg/actua tion nasal spray,purvi [place] 1 spray every day by intranas al route for 14 days. 01/14 completed Not Available Not Available Not Available metformin ER 500 mg tablet,ex tended release 24 hr TAKE ONE TABLET BY MOUTH EVERY MORNING 2024 active Last halfway visit 01/14/25L ast PE 04/01/24 Next PE/OV 04/02/25 Not Available Not Available Not Available amoxicill in 875 mg-potass ium clavulana te 125 mg tablet Take 1 tablet every 12 hours by oral route for 7 days. 01/14 completed Not Available Not Available Not Available aripipraz ole 30 mg tablet active Not Available Not Available Not Available Vitamin D3 25 mcg (1,000 unit) capsule TAKE 1 CAPSULE BY MOUTH EVERY DAY 2024 active Last OV 04/08/24L ast PE 04/01/24 Next PE/OV 04/02/25 Not Available Not Available Not Available cholecalc iferol (vitamin D3) 1,250 mcg (50,000 unit) capsule Take 1 capsule every week by oral route. 10/15 completed Not Available Not Available Not Available Banophen 50 mg capsule Take 1 capsule every 4 hours by oral route for 15 days. 01/14 completed Not Available Not Available Not Available Benadryl Allergy 50 mg tablet take 1 tablet as needed every six hours, not to exceed four doses in 24 hours 2024 active Not Available Not Available Not Avai lable Vitals Date Recorded Body height Body mass index (BMI) Body weight Heart rate Oxygen saturation Oxygen saturation in Arterial blood by Pulse oximetry Systolic And Diastolic Provider Name and Address Organization Details Last Updated DateTime 5 165.1 cm 33.1 kg/m2 37508.8 8 g 80 /min 99 % 99 % 118/72 mm[Hg] Kimmie Torres [facility] 5 13:09:25 Date Recorded Systolic And Diastolic Provider Name and Address Organization Details Last Updated DateTime 04/01/2024 118/82 mm[Hg] EDITH VALENTIN, N P [address] [facility],ATTN: REJI MOSS [email or web address]], [place], [address], [facility] 04/01/2024 11:02:27 Date Recorded Body height Body mass index (BMI) Body weight Heart rate Oxygen saturation Oxygen saturation in Arterial blood by Pulse oximetry Provider Name and Address Organization Details Last Updated DateTime 4 165.1 cm 32.6 kg/m2 38227.1 g 93 /min 98 % 98 % Tamiko Maximeerik [facility] 4 10:39:49 Date Recorded Body height Body mass index (BMI) Body weight Heart rate Oxygen saturation Oxygen saturation in Arterial blood by Pulse oximetry Systolic And Diastolic Provider Name and Address Organization Details Last Updated DateTime 4 165.1 cm 32.1 kg/m2 67883.3 3 g 109 /min 99 % 99 % 126/80 mm[Hg] Tamiko Leiva [facility] 4 14:43:45 Date Recorded Body height Body mass index (BMI) Body weight Heart rate Systolic And Diastolic Provider Name and Address Organization Details Last Updated DateTime 06/27/2023 165.1 cm 34.9 kg/m2 60882.4 g 122 /min 132/80 mm[Hg] Humaira Arciniega [facility] 06/27/2023 14:36:09 Social History Question Answer Notes LastModified by Organizat ion Details LastModified Time Tobacco Smoking Status Current Every Day Smoker pack a day EDITH VALENTIN NP [address] [facility],ATTN: REJI ISA [[email or web address]], [place], [address], [facility] 04/01/2024 10:55:56 What Is Your Level Of Caffeine Consumption? Moderate 3 Cups/day, Black [email or web address] Information not available 04/01/2024 What Type Of Diet Are You Following? REGULAR [email or web address] Information not available 04/01/2024 Which Illicit Or Recreational Drugs Have You Used? Marijuana Smokes 2/day [email or web address] Information not available 04/01/2024 What Was The Date Of Your Most Recent Tobacco Screening? 04/01/2024 [email or web address] Information not available 04/01/2024 At What Age Did You Start Smoking Tobacco? 18 [email or web address] Information not available 04/01/2024 How Many Years Have You Smoked Tobacco? 20 [email or web address] Information not available 04/01/2024 Sex: Female Functional Status Question Answer Note LastModified by Organizat ion Details LastModified Time Do you use any illicit or recreational drugs? Yes [email or web address] Information not available 04/01/2024 What is your level of alcohol consumption? None sober for 4 years [email or web address] Information not available 04/01/2024 What is your exercise level? Moderate working out more, gym and bball [email or web address] Information not available 04/01/2024 Mental Status None recorded. Family History Relationship Description Onset Age of this Age Resolved Age Notes LastModified by Organization Details LastModified Time Mother Malignant melanoma [email or web address] Not available 2023 10:48:37 Mother Neoplasm of ovary [email or web address] Not available 2023 10:48:50 Mother Malignant neoplasm of lung [email or web address] Not available 2023 10:49:04 Paternal Grandmother Malignant neoplasm of pharynx [email or web address] Not available 2023 10:49:21 Medical History No medical history recorded. Gynecological HistoryNo gynecological history recorded. Obstetrics History GPAL:G 0 P 0 0 0 0 Immunizations Vaccine Type Date Status Note Provider Nam e and Address Organization Details Recorded Time Influenza, split virus, trivalent, PF 04/01/2024 completed Aaron Redman MD [address] [place] [address],ATTN: REJI TING [[email or web address]], [place], [address], [facility] 04/02/2024 07:20:17 Past Encounters Encounter ID Performer Location Encounter Start Date Encounter Closed Date Diagnosis/Indication Diagnosis SNOMED-CT Code Diagnosis ICD10 Code Diagnosis IMO Codes Diagnosis Note [id number] Hany Slater MD [address] [address] 06/27/2023 14:24:31 06/27/2023 15:06:17 Schizoaffective disorder 61867915 F25.9 S/P prolonged hospitaliz ation for inpatient psych management Stable on abilify ,inderal , haldol, hydroxyzin e and zyprexaFol lowed by floor layer apprentice at [facility] hyperthyroidism 640502879 E05.90 Repeat TFT Thyroid nodule 781096038 E04.1 US 01/11 showed thyroid nodulesPla n: Repeat US, Endo referral Prediabetes 137405331 R7 3.03 Recent A1c 5.6On metformin 500 mg daily Body mass index 30+ - obesity 232979077 Z68.35 Patient reports working hard to loose weight and eating rightDecli francisco referral to weight loss program /nutrition ist Hyperlipidemia 02050350 E78.5 On atorvastat in 20 mg daily Vitamin D deficiency 347 [address]0943 E55.9 Cigarette smoker 1440309 7 F17.210 Discussed deleteriou s effects of smoking and counseled to quit. Verbalized understand ing. Still in the contemplat gricelda stage . Declines nicotine replacemen t therapy at this time Time > 3 minutes Itching of skin 65874505 0 L29.9 Do not take together with hydroxyzin e Headache 29731361 R51.9 [id number] Farrah Gomes i, MD [address] [address] 04/01/2024 10:30:24 04/01/2024 12:41:00 Adult health examination 187649314 Z00.00 Healthy diet and exercise discussed. USPSTF guidelines reviewed including breast cancer and cervical cancer screening guidelines . New colonoscop y guidelines discussed. Reviewed how to do a breast exam. ABCDE's of skin cancer reviewed. Referred to dermatolog y. Vaccines discussed, flu shot today. Patient will follow-up if any concerns otherwise will see patient back in 1 year for routine physical. They are in agreement. Screening for malignant neoplasm of cervix 196399207 Z12.4 never, with heavy menses, set up with RESOLUTION ANALYST for exam. Screening for malignant neoplasm of breast [id number] Z12.39 Depression screening 171 [id number] Z13.31 Screening for malignant neoplasm of skin [id number] Z12.83 mom with melanoma, set up for derm routine screening Schizoaffe ctive disorder [id number] F25.9 f/b psych, stable on current regimen, updated EKG as below for med monitoring , will continue to monitor. Subclinica l hyperthyroidism [id number] E05.90 hx of subclinica l hyperthy, updated labs today, will continue to monitor. Prediabetes 390385306 R7 3.03 on metformin once a day, updated labs today will continue to monitor. Hyperlipidemia 88643975 E78.5 on 20mg atorv daily, updated labs as above, will continue to monitor. Thyroid nodule 906496607 E04.1 06/2023 multiple thyroid nodules seen, repeat 1 year US, set up order placed for june,, they will call and schedule for that time. Administra tion of influenza vaccine 02003046 Z23 Medication monitoring 39 6851660 Z51.81 Impacted c erumen of bilateral ears [id number] 968982 H61.23 cerumen removed completed by ear irrigation and with curette. See procedure doc. I suggested debrox use and routine ear cleaning after getting out of the shower. Pt will f/u PRN. Tobacco user [id number] Z 72.0 1 pack/day not ready to quit, education and counsellin g provided. Advised to reach out if would like to quit and needs help. 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 [id number] Farrah Gomes i, MD [address] [phone] 04/08/2024 14:37:17 04/08/2024 15:00:32 Electrocardiogram abnormal [id number] R94.31 EKG with some abnormalit ies, EKG prior in hospital similar, echo to r/o valve abnormalit ies Acute righ t otitis media 367692427 H66.91 Plan to start abx, likely brewing infection, ?purulent drainage behind TM. Discussed risks/bene fits/side effects/ad verse effects of medication , take with food. Recommende d ibuprofen for comfort. If worse, drainage from ear, new symptoms, should follow-up in office. Flonase daily x2 weeks with fluid. Red flag symptoms discussed with patient and when to seek ED care. Patient verbalized understand ing and is in agreement. [id number] Farrah Gomes i, MD [facility] [address] [place] [address] 01/14/2025 13:01:14 01/14/2025 13:19:21 Hyperlipidemia 39873950 E78.5 stable. continue atorvastat in 20 mg. will check lipids at upcoming physical . Anxiety 77366776 F41.9 49623 stable. follows outpatient with psychiatri st. takes benadryl prn for anxiety. Prediabetes 294301210 R7 3.03 stable. continue metformin. tolerating well. Vitamin D deficiency 347 83221 E55.9 stable. continue vitD daily Pain 41185356 R52 [id number] currently no complaints . takes tylenol prn for pain Management of drug regimen 800877256 Z79.077 [id number] presents for medication management . reviewed medication s that are prescribed by PCP. no other complaints today. Health Concerns Section Related Observation LastModified by Organization Detai ls LastModified Time None Recorded Concern Status LastModified by Organization Details LastModified Time None Recorded Advance Directives Directive None Recorded Payers Insurance Date Sequence Insurance Name Policy Number Policy Das Covered Member ID Das Member ID Guarantor Name 04/03/2025 [facility] Jacobo [id number] Aaron Jacobo 04/03/2025 1 [place] [facility] Aaron Jacobo [id number] Aaron Jacobo Notes Date Note Type Note Provider Name and Address Organization Details Recorded Time 3 text/html 37 years old non binary patient with history of schizoaffective disorder / bipolar disorder who a prolonged inpatient Psychiatric management of her psychotic disorder at [facility] from 12/2021 to 06/21/2023. Here for hospital follow up visit. Reports that doing well since discharge. Has no acute complaints. Reports working hard to loose weightFollowed by psychiatrist Erasto Tovar - [facility].No recent change in regimen Hany Slater MD [address],ATTN: REJI MOSS [[email or web address]] , [place], [address], [facility] [employer] 06/29/2023 06:13:49 4 text/html Annual Wellness VisitReported by PatientPreventativeFor last pe, (1st pe in office). For tetanus, (unsure will check). For mammogram, (never). For pap, (never, would like to see fisher diving).LMP: monthly, heavyears feeling really fullfollowing with psych Aaron Redman MD [address],ATTN: REJI MOSS [[email or web address]] , [place], [address], [employer] 04/02/2024 07:22:07 4 text/html ROS as noted in the HPI Here for PE last week, ears were impacted, flushed out for cerumen. Continues with sxs of fullness now pain in R ear as well. Patient denies CP, SOB, fevers/chills, numbness/tingling, loss of sensation Recent EKG similar to prior EKG in hosp but some lead changes. Denies cardiac sxs. Aaron Redman MD [address],ATTN: REJI MOSS [[email or web address]] , [place], [address], [employer] 04/08/2024 18:23:11 5 text/html ROS as noted in the HPI 39 y/o patient who presents to clinic for medication check.pt is moving to independent [facility] and needs her medications check prior to movingtolerating medications wellno other complaints Kenny Marr MD [address],ATTN: REJI MOSS [[email or web address]] , [place], [phone], [facility] 01/15/2025 06:35:55 OBGyn Episode No OBEpisode recorded.
--- OUTSIDE RECORDS SUMMARY | 2025-05-26 20:44 | XMS_ITS | Encounter Summary ---
Author Organization Erin styles Address [address] [address] Care Team Providers Care Business Analyst Intern Name Role Phone [facility] [place] Unavailab le None, Pcp Primary Care Provider Unavailabl e Encounter Details Date Type Department Care Team (Latest Contact Info) Description 05/23/2025 Travel Social History Tobacco Use Types Packs/Day Years [...] any time in the past 12 m [facility], were you homeless or living in a senior care (including now)? No 05/23/2025 [facility] Utilities Answer Date Recorded In the [...] on file documented as of this encounter Functional Status * Are you deaf or do you have serious difficulty hearing? Answer Date of Assessment Author No 05/23/2025 6:54 PM EDT Ravi Pitt * Are you blind or do you have serious difficulty seeing, even when wearing glasses? Answer Date of Assessment Author No 05/23/2025 6:54 PM Ravi Tony * Do you have serious difficulty walking or climbing stairs? Answer Date of Assessment Author No 05/23/2025 6:54 PM Ravi Tony * Do you have difficulty dressing or [...] PM Ravi Tony documented in this encounter Plan of Treatment Not on file documented as of this encounter Visit Diagnoses Not on filedocumented in this encounter Care Teams Business Analyst Intern Relationship Specialty Start Date End Date [facility] [place] [address] [place] [id number] PCP - Insurance Assigned PCP 05/13/25 None, PcpMD PCP - General 05/23/25 documented as of this encounter
[2025-05-26 21:06] VITALS: BP 150/79; PULSE 72; RESP 16; TEMP 36.4; O2SAT 98
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
[2025-05-27 08:41] LABS: Estimated Glomerular Filt Rate > 60
[2025-05-27 08:42] LABS: Hemoglobin A1C 140.6279 umol/L
[2025-05-27 08:47] VITALS: BP 137/97; PULSE 120; RESP 16; TEMP 36.4; O2SAT 97
[2025-05-27 08:47] LABS: Alanine Aminotransferase 34 U/L (0-31); Albumin Level 4.6 g/dL (3.5-5.0); Alkaline Phosphatase 102 U/L (39-117); Anion Gap 13 (12-20); Aspartate Amino Transferase 30 U/L (5-31); Blood Urea Nitrogen 11 mg/dL (9-16); Calcium 9.3 mg/dL (8.4-10.2); Carbon Dioxide 20 mmol/L (22-29); Chloride 111 mmol/L (96-108); Cholesterol 141 mg/dL (<200); Estimated Glomerular Filt Rate > 60; HDL Cholesterol 40 mg/dL (>40); Potassium 4.3 mmol/L (3.3-5.1); Sodium 140 mmol/L (135-145); Total Protein 7.5 g/dL (6.5-8.0); Triglycerides 94 mg/dL (<150)
[2025-05-27] MEDS: ARIPiprazole 30 MG TABLET PO (08:50)
[2025-05-27 09:04] LABS: Free T4 (Free Thyroxine) 0.82 ng/dL (0.71-1.85); Thyroid Stimulating Hormone 0.75 uIU/mL (0.32-4.0)
[2025-05-27 20:00] VITALS: BP 112/63; PULSE 103; RESP 18; TEMP 36.7; O2SAT 98
[2025-05-28 08:58] VITALS: BP 120/82; PULSE 113; RESP 16; TEMP 36.3; O2SAT 99
[2025-05-28] MEDS: ARIPiprazole 30 MG TABLET PO (09:01)
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
[2025-05-28 20:00] VITALS: BP 125/85; PULSE 111; RESP 20; TEMP 36.3; O2SAT 96
[2025-05-29 09:15] VITALS: BP 113/79; PULSE 121; RESP 16; TEMP 36.4; O2SAT 97
[2025-05-29] MEDS: ARIPiprazole 30 MG TABLET PO (09:17)
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
[2025-05-29 20:00] VITALS: BP 116/73; PULSE 120; TEMP 36.8; O2SAT 97
--- NOTE | 2025-05-30 07:05 | HO.PSYCHPN ---
Subjective Subjective Date of Service: 05/30/25 Reason For Visit: schizoaffective disorder,unspecified Interim History: Met with patient. Discussed with Nursing. Overall thought operative but is also guarded and appears paranoid as per nursing. Was seen in the hallway utilizing headphones and dancing at times. With jingle writer his oddly related and thought form appears a little loose at times. Reports feeling tired because of medications and would like gabapentin dose decreased. Regarding other medications, would like them to stay as is, but was also able to communicate when she discontinue medications in the past she had intrusive thoughts and auditory hallucinations, but denies those currently. No SI. Disposition planning perspective unsure whether she wants inpatient rehab setting or outpatient IOP and is leaning towards outpatient services. Review of Systems Review of Systems Nothing acute Mental Status Exam Mental Status Exam Narrative: pleasant. Overall engaged. Fairly presented. Utilizing headphones and dancing in the hallways at times. Also guarded intermittently. In the milieu. Endorses feeling anxious. Denies feeling depressed. No SI. No HI. Denies feeling paranoid or hallucinating. Is difficult to follow thought form at times and there is some loosening of association. Insight and judgment is limited. Diagnostics Vital Signs (24Hr): Vital Signs - 24 hr 05/29/25 09:15 05/29/25 20:00 Temperature 97.6 F 98.2 F Pulse Rate 121 H 120 H Respiratory Rate 16 Blood Pressure 113/79 116/73 Pulse Oximetry 97 97 Oxygen Delivery Method Room Air Room [facility] Labs 05/27/25 07:41 Medications Medications Current Medications Acetaminophen (Acetaminophen 325 Mg Tablet) 650 mg PO Q6H PRN PRN Reason: Headache/Pain, Scale 1-10 Last Admin: 05/29/25 20:20 Dose: 650 mg Al Hydroxide/Mg Hydroxide (Magnesium Hydrox/Alum Hydrox 30 Ml Oral.Susp) 30 ml PO Q6H PRN PRN Reason: Heartburn/Nausea Aripiprazole (Aripiprazole 30 Mg Tablet) 30 mg PO DAILY [facility] Last Admin: 05/29/25 09:17 Dose: 30 mg Atorvastatin Calcium (Atorvastatin Calcium 20 Mg Tablet) 20 mg PO DAILY [facility] Last Admin: 05/29/25 09:15 Dose: 20 mg Clonidine HCl (Clonidine Hcl 0.1 Mg Tablet) 0.1 mg PO Q4H PRN; Protocol PRN Reason: moderate anxiety Gabapentin (Gabapentin 300 Mg Capsule) 300 mg PO TID [facility] Last Admin: 05/29/25 20:21 Dose: 300 mg Haloperidol (Haloperidol 1 Mg Tablet) 2 mg PO TID PRN PRN Reason: agitation/stress Last Admin: 05/29/25 13:38 Dose: 2 mg Hydroxyzine HCl (Hydroxyzine Hcl 25 Mg Tablet) 25 mg PO Q6H PRN PRN Reason: mild anxiety Last Admin: 05/27/25 02:40 Dose: 25 mg Hydroxyzine HCl (Hydroxyzine Hcl 50 Mg Tablet) 50 mg PO TID [facility] Last Admin: 05/29/25 20:22 Dose: 50 mg Lorazepam (Lorazepam 1 Mg Tablet) 1 mg PO TID [facility] Last Admin: 05/29/25 20:21 Dose: 1 mg Magnesium Hydroxide (Milk Of Magnesia 30 Ml Oral.Susp) 30 ml PO DAILY PRN PRN Reason: Constipation Metformin HCl (Metformin Hcl Er 500 Mg Tab.Er.24h) 500 mg PO DAILY@1700 [facility] Last Admin: 05/29/25 16:45 Dose: 500 mg Nicotine (Nicotine 21 Mg Patch.Td24) 21 mg TRANSDERMA DAILY PRN PRN Reason: nicotine craving Nicotine Polacrilex (Nicotine Polacrilex 2 Mg Gum) 2 mg BUCCAL Q2H PRN PRN Reason: Nicotine Cravings Last Admin: 05/29/25 20:20 Dose: 2 mg Trazodone HCl (Trazodone Hcl 50 Mg Tablet) 50 mg PO BEDTIME MRX1 PRN PRN Reason: Insomnia Last Admin: 05/27/25 02:40 Dose: 50 mg Vitamin D (Cholecalciferol (Vitamin D3) 25 Mcg Tablet) 25 mcg PO DAILY [facility] Last Admin: 05/29/25 09:16 Dose: 25 mcg Allergies Allergies Allergy/AdvReac Type Severity Reaction Status Date / Time No Known Allergies Allergy Verified 05/26/25 22:56 Assessment & Plan Assessment & Plan (1) Schizophrenia: Status: Acute Code(s): F20.9 - Schizophrenia, unspecified (2) Alcohol use disorder: Status: Acute Code(s): F10.90 - Alcohol use, unspecified, uncomplicated (3) PTSD (post-traumatic stress disorder): Status: Acute Code(s): F43.10 - Post-traumatic stress disorder, unspecified (4) HLD (hyperlipidemia): Status: Acute Code(s): E78.5 - Hyperlipidemia, unspecified Plan Patient is a 39 yo trans male, non-binary (they/then) with hx of Schizophrenia (vs Schizoaffective disorder), PTSD, alcohol use disorder, who presents for disorganized behavior and delusional ideation in the community. Patient reports that they have overall been doing well, taking Abilify, independent living, taking there medications regularly but got dysregulated this past week, worried that people in the community were thinking that they are a Pervert. Patient says when they went to [employer] along with drive worker, some kids were in the store, mimicking humping each other in front of them which patient thinks is due to a false belief circulating in the neighborhood that patient is a pervert. Patient says people lied about them that they hurt a baby... Patient reports that they found human feces on her doorstep. Patient says that they drank way more than usual... Eighteen beers and was also smoking cannabis and together this combination resulted in patient getting dysregulated who says when that happens I can not hold my traumas... Patient said they called their mother and mother called 911. Collateral info reports that patient was disorganized in speech and behavior and making paranoid comments about the police following them neighborhood kids laughing at them. Patient denies they think the police follow them but says they do not trust the police. Patient references events that happened about a decade ago, saying there boss called them a pedophile and said that the police are watching him. Patient referenced being incarcerated, being at psychiatrically hospitalized at [facility] for over year... Patient makes numerous references to people thinking they were a pervert, hurt a baby... Initially patient says they only binge drank alcohol 1-2 days a week but later says it is probably more like 4 days a week. Patient endorses intermittent AH it is like a dialogue... of their long ago psychologist. -Patient denies any SI; unclear if history of manic episodes Formulation/clinical reasoning: Patient presents with paranoid delusional ideas, AH. Need more collateral but it is possible patient is close to baseline and that symptoms were exacerbated by substance abuse. Patient reports drinking excessively about 4 times a week; denies history of withdrawal withdrawal seizures. Patient perseverative on worry that they are seen as either a pervert or a child molester or that at some point hurt or killed a baby. Patient is very distracted by this worry, the conversation getting derailed by patient making frequent references to it; patient cites events that happened over a decade ago which patient thinks are relative now and sometimes it is difficult to tell if patient has talking about the past or the present. -Will start gabapentin and Ativan scheduled in case patient does withdrawal; will continue with Abilify 30 mg. Will gather collateral and patient gave jingle writer and social research assistant permission to call numerous out patient workers 05/28: Patient found standing in room with headphones to ears listening to music. Patient feels fine, and states I have been dancing and and fine as long as I am dancing. Patient denies anxiety or depression. Denies SI/HI/AVH. Per nursing, patient is disorganized, expensive, guarded, and slept 8 hours last night. Patient starts from been organized to tangential. Otherwise, patient is pleasant and cooperative with no apparent distress. Continue current treatment regimen.. 05/29 Patient talking with jingle writer about using coping skills on the unit, wanting a chest bored, using headphones. Still with paranoid ideations. -Unable to get a hold of collateral though tried numerous times -patient does not want medication changes the Abilify as pretty much at maximum dose; wondering if detox would help patient become more organized but thus for no change in presentation. Very much need collateral 05/30/2025: lower gabapentin from 300 mg 3 times per day to 200 mg 3 times per day, due to patient complaining of sedation Plan: CV (retracted 3 day notice) Continue Abilify 30 mg daily Taper down gabapentin and discontinue Tapered down Ativan and DC Continue other home medications Gather collateral Reason for continued inpatient stay Substantial Risk for: inability to function and rapid decompensation Time Spent With Patient Time: Total time managing care of this patient today ____ minutes.
[2025-05-30 08:00] VITALS: BP 129/65; PULSE 120; RESP 20; TEMP 36.5; O2SAT 96
[2025-05-30] MEDS: ARIPiprazole 30 MG TABLET PO (08:37)
[2025-05-30] MEDS: Nicotine 21 MG PATCH.TD24 TRANSDERMA (08:53)
[2025-05-30 20:00] VITALS: BP 117/68; PULSE 110; RESP 18; TEMP 36.7; O2SAT 97
--- NOTE | 2025-05-31 08:01 | HO.PSYCHPN ---
Subjective Subjective Date of Service: 05/31/25 Reason For Visit: schizoaffective disorder,unspecified Interim History: Met with patient. Discussed with Nursing. Doing lots of artwork in room. Overall has disorganized thought form and appears paranoid and oddly related with loose thought form. Mood ok. Less sedate today. Denies AH. No SI. Disposition planning perspective remains unsure whether she wants inpatient rehab setting or outpatient IOP. Medication Compliance: Yes Side effects from medications: No Attending Groups: Intermittent Review of Systems Review of Systems Nothing acute Mental Status Exam Mental Status Exam Narrative: pleasant. Overall engaged. Fairly presented. Utilizing headphones and artwork. Guarded intermittently. IN room more today. Less anxious. Denies feeling depressed. No SI. No HI. Denies feeling paranoid or hallucinating. Is difficult to follow thought form at times and there is some loosening of association. Insight and judgment is limited. Diagnostics Vital Signs (24Hr): Vital Signs - 24 hr 05/30/25 20:00 Temperature 98.1 F Pulse Rate 110 H Respiratory Rate 18 Blood Pressure 117/68 Pulse Oximetry 97 Oxygen Delivery Method Room Air Labs 05/27/25 07:41 Medications Medications Current Medications Acetaminophen (Acetaminophen 325 Mg Tablet) 650 mg PO Q6H PRN PRN Reason: Headache/Pain, Scale 1-10 Last Admin: 05/29/25 20:20 Dose: 650 mg Al Hydroxide/Mg Hydroxide (Magnesium Hydrox/Alum Hydrox 30 Ml Oral.Susp) 30 ml PO Q6H PRN PRN Reason: Heartburn/Nausea Aripiprazole (Aripiprazole 30 Mg Tablet) 30 mg PO DAILY [facility] Last Admin: 05/30/25 08:37 Dose: 30 mg Atorvastatin Calcium (Atorvastatin Calcium 20 Mg Tablet) 20 mg PO DAILY [facility] Last Admin: 05/30/25 08:37 Dose: 20 mg Clonidine HCl (Clonidine Hcl 0.1 Mg Tablet) 0.1 mg PO Q4H PRN; Protocol PRN Reason: moderate anxiety Gabapentin (Gabapentin 100 Mg Capsule) 200 mg PO TID [facility] Last Admin: 05/30/25 22:04 Dose: 200 mg Haloperidol (Haloperidol 1 Mg Tablet) 2 mg PO TID PRN PRN Reason: agitation/stress Last Admin: 05/29/25 13:38 Dose: 2 mg Hydroxyzine HCl (Hydroxyzine Hcl 25 Mg Tablet) 25 mg PO Q6H PRN PRN Reason: mild anxiety Last Admin: 05/27/25 02:40 Dose: 25 mg Hydroxyzine HCl (Hydroxyzine Hcl 50 Mg Tablet) 50 mg PO TID [facility] Last Admin: 05/30/25 22:04 Dose: 50 mg Lorazepam (Lorazepam 1 Mg Tablet) 1 mg PO TID [facility] Last Admin: 05/30/25 22:04 Dose: 1 mg Magnesium Hydroxide (Milk Of Magnesia 30 Ml Oral.Susp) 30 ml PO DAILY PRN PRN Reason: Constipation Metformin HCl (Metformin Hcl Er 500 Mg Tab.Er.24h) 500 mg PO DAILY@1700 [facility] Last Admin: 05/30/25 17:00 Dose: 500 mg Nicotine (Nicotine 21 Mg Patch.Td24) 21 mg TRANSDERMA DAILY PRN PRN Reason: nicotine craving Last Admin: 05/30/25 08:53 Dose: 21 mg Nicotine Polacrilex (Nicotine Polacrilex 2 Mg Gum) 2 mg BUCCAL Q2H PRN PRN Reason: Nicotine Cravings Last Admin: 05/30/25 22:05 Dose: 2 mg Trazodone HCl (Trazodone Hcl 50 Mg Tablet) 50 mg PO BEDTIME MRX1 PRN PRN Reason: Insomnia Last Admin: 05/30/25 22:05 Dose: 50 mg Vitamin D (Cholecalciferol (Vitamin D3) 25 Mcg Tablet) 25 mcg PO DAILY [facility] Last Admin: 05/30/25 08:37 Dose: 25 mcg Allergies Allergies Allergy/AdvReac Type Severity Reaction Status Date / Time No Known Allergies Allergy Verified 05/26/25 22:56 Assessment & Plan Assessment & Plan (1) Schizophrenia: Status: Acute Code(s): F20.9 - Schizophrenia, unspecified (2) Alcohol use disorder: Status: Acute Code(s): F10.90 - Alcohol use, unspecified, uncomplicated (3) PTSD (post-traumatic stress disorder): Status: Acute Code(s): F43.10 - Post-traumatic stress disorder, unspecified (4) HLD (hyperlipidemia): Status: Acute Code(s): E78.5 - Hyperlipidemia, unspecified Plan Patient is a 39 yo trans male, non-binary (they/then) with hx of Schizophrenia (vs Schizoaffective disorder), PTSD, alcohol use disorder, who presents for disorganized behavior and delusional ideation in the community. Patient reports that they have overall been doing well, taking Abilify, independent living, taking there medications regularly but got dysregulated this past week, worried that people in the community were thinking that they are a Pervert. Patient says when they went to [employer] along with wafer polishing lead worker, some kids were in the store, mimicking humping each other in front of them which patient thinks is due to a false belief circulating in the neighborhood that patient is a pervert. Patient says people lied about them that they hurt a baby... Patient reports that they found human feces on her doorstep. Patient says that they drank way more than usual... Eighteen beers and was also smoking cannabis and together this combination resulted in patient getting dysregulated who says when that happens I can not hold my traumas... Patient said they called their mother and mother called 911. Collateral info reports that patient was disorganized in speech and behavior and making paranoid comments about the police following them neighborhood kids laughing at them. Patient denies they think the police follow them but says they do not trust the police. Patient references events that happened about a decade ago, saying there boss called them a pedophile and said that the police are watching him. Patient referenced being incarcerated, being at psychiatrically hospitalized at [facility] for over year... Patient makes numerous references to people thinking they were a pervert, hurt a baby... Initially patient says they only binge drank alcohol 1-2 days a week but later says it is probably more like 4 days a week. Patient endorses intermittent AH it is like a dialogue... of their long ago psychologist. -Patient denies any SI; unclear if history of manic episodes Formulation/clinical reasoning: Patient presents with paranoid delusional ideas, AH. Need more collateral but it is possible patient is close to baseline and that symptoms were exacerbated by substance abuse. Patient reports drinking excessively about 4 times a week; denies history of withdrawal withdrawal seizures. Patient perseverative on worry that they are seen as either a pervert or a child molester or that at some point hurt or killed a baby. Patient is very distracted by this worry, the conversation getting derailed by patient making frequent references to it; patient cites events that happened over a decade ago which patient thinks are relative now and sometimes it is difficult to tell if patient has talking about the past or the present. -Will start gabapentin and Ativan scheduled in case patient does withdrawal; will continue with Abilify 30 mg. Will gather collateral and patient gave newspaper writer and social media developer permission to call numerous out patient workers 05/28: Patient found standing in room with headphones to ears listening to music. Patient feels fine, and states I have been dancing and and fine as long as I am dancing. Patient denies anxiety or depression. Denies SI/HI/AVH. Per nursing, patient is disorganized, expensive, guarded, and slept 8 hours last night. Patient starts from been organized to tangential. Otherwise, patient is pleasant and cooperative with no apparent distress. Continue current treatment regimen.. 05/29 Patient talking with newspaper writer about using coping skills on the unit, wanting a chest bored, using headphones. Still with paranoid ideations. -Unable to get a hold of collateral though tried numerous times -patient does not want medication changes the Abilify as pretty much at maximum dose; wondering if detox would help patient become more organized but thus for no change in presentation. Very much need collateral 05/30/2025: lower gabapentin from 300 mg 3 times per day to 200 mg 3 times per day, due to patient complaining of sedation 05/31: no changes Plan: CV (retracted 3 day notice) Continue Abilify 30 mg daily Taper down gabapentin and discontinue Tapered down Ativan and DC Continue other home medications Gather collateral Reason for continued inpatient stay Substantial Risk for: inability to function and rapid decompensation Time Spent With Patient Time: Total time managing care of this patient today ____ minutes.
[2025-05-31 09:08] VITALS: BP 114/68; PULSE 101; RESP 14; TEMP 36.7; O2SAT 98
[2025-05-31] MEDS: ARIPiprazole 30 MG TABLET PO (09:10)
[2025-05-31] MEDS: Nicotine 21 MG PATCH.TD24 TRANSDERMA (09:17)
[2025-05-31 20:27] VITALS: BP 126/99; PULSE 128; RESP 16; TEMP 36.6; O2SAT 96
[2025-06-01 08:00] VITALS: BP 119/76; PULSE 92; RESP 20; TEMP 37.2; O2SAT 99
[2025-06-01] MEDS: ARIPiprazole 30 MG TABLET PO (08:25)
[2025-06-01] MEDS: Nicotine 21 MG PATCH.TD24 TRANSDERMA (08:38)
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
[2025-06-01 17:44] VITALS: BP 114/75
[2025-06-02 08:00] VITALS: BP 121/75; PULSE 90; TEMP 37; O2SAT 98
[2025-06-02] MEDS: ARIPiprazole 30 MG TABLET PO (08:47)
[2025-06-02] MEDS: Nicotine 21 MG PATCH.TD24 TRANSDERMA (12:33)
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
[2025-06-02] MEDS: ARIPiprazole ER 400 MG SUSER.SYR IM (18:16)
[2025-06-02 20:00] VITALS: BP 122/70; PULSE 101; TEMP 36.9; O2SAT 93
[2025-06-03 08:45] VITALS: BP 113/61; PULSE 94; RESP 16; TEMP 36.3; O2SAT 98
[2025-06-03] MEDS: ARIPiprazole 30 MG TABLET PO (08:49)
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
[2025-06-03] MEDS: Nicotine 21 MG PATCH.TD24 TRANSDERMA (12:50)
[2025-06-03 20:06] VITALS: BP 113/60; PULSE 89; RESP 16; TEMP 35.9; O2SAT 98
[2025-06-04 08:00] VITALS: BP 123/69; PULSE 87; TEMP 36.4; O2SAT 100
[2025-06-04] MEDS: ARIPiprazole 30 MG TABLET PO (08:42)
[2025-06-04] MEDS: Nicotine 21 MG PATCH.TD24 TRANSDERMA (09:30)
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
[2025-06-04 20:00] VITALS: BP 113/67; PULSE 111; RESP 18; TEMP 36.5; O2SAT 95
[2025-06-05 08:00] VITALS: BP 110/69; PULSE 89; TEMP 36.4; O2SAT 97
[2025-06-05 08:42] LABS: Estimated Glomerular Filt Rate > 60
[2025-06-05] MEDS: Nicotine 21 MG PATCH.TD24 TRANSDERMA (08:44)
[2025-06-05] MEDS: ARIPiprazole 30 MG TABLET PO (08:44)
[2025-06-05 19:52] VITALS: BP 112/63; PULSE 80; TEMP 36.2; O2SAT 96
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
[2025-06-06 08:00] VITALS: BP 114/67; PULSE 76; RESP 16; TEMP 36; O2SAT 95
[2025-06-06] MEDS: Nicotine 21 MG PATCH.TD24 TRANSDERMA (08:26)
[2025-06-06] MEDS: ARIPiprazole 30 MG TABLET PO (11:04)
[2025-06-06] MEDS: Milk of Magnesia 30 ML ORAL.SUSP PO (11:04)
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
[2025-06-06 19:51] VITALS: BP 125/73; PULSE 102; RESP 18; TEMP 36.1; O2SAT 98
[2025-06-07 08:00] VITALS: BP 99/59; PULSE 72; RESP 17; TEMP 35.9; O2SAT 97
[2025-06-07] MEDS: ARIPiprazole 30 MG TABLET PO (08:07)
[2025-06-07] MEDS: Nicotine 21 MG PATCH.TD24 TRANSDERMA (08:09)
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
[2025-06-07 19:54] VITALS: BP 120/71; PULSE 87; RESP 15; TEMP 37; O2SAT 98
[2025-06-08 08:16] VITALS: BP 105/68; PULSE 107; TEMP 35.1; O2SAT 98
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
[2025-06-08] MEDS: ARIPiprazole 30 MG TABLET PO (08:52)
== END 2025-06-08 11:45 | disposition home or self-care (01) | DRG 750 ==
PROVIDERS: Nurse Practitioner Psychiatric/Mental Health; Admitting Provider Psychiatry & Neurology Psychiatry; Visit Provider Psychiatry & Neurology Psychiatry
DX: F20.9 Schizophrenia, unspecified (principal); E11.9 Type 2 diabetes mellitus without complications; F10.90 Alcohol use, unspecified, uncomplicated; E78.5 Hyperlipidemia, unspecified; F43.10 Post-traumatic stress disorder, unspecified; Z79.84 Long term (current) use of oral hypoglycemic drugs; Z79.899 Other long term (current) drug therapy
CPT/HCPCS: 36415; 80053; 80061; 82565; 83036; 84439; 84443; J0401

== ENCOUNTER → 2025-05-26 20:38 | Outpatient (BNV) | payer OTHER, SELFPAY | PROVIDERS: Admitting Provider Psychiatry & Neurology Psychiatry; Visit Provider Psychiatry & Neurology Psychiatry | DX: F20.0 Paranoid schizophrenia (principal); F10.90 Alcohol use, unspecified, uncomplicated; F43.11 Post-traumatic stress disorder, acute; E78.5 Hyperlipidemia, unspecified | CPT/HCPCS: 99232 ==

== ENCOUNTER → 2025-05-26 20:38 | Outpatient (BNV) | payer MEDICAID, SELFPAY | PROVIDERS: Admitting Provider Psychiatry & Neurology Psychiatry; Visit Provider Nurse Practitioner Family | DX: E78.5 Hyperlipidemia, unspecified (principal); E11.9 Type 2 diabetes mellitus without complications | CPT/HCPCS: 99221 ==